=== PATIENT | male | born 1975 | race Caucasian/White ===

== ENCOUNTER 2020-04-28 21:21 | Inpatient (IN) | payer OTHER ==
[2020-04-28] MEDS ORDERED: ALBUTEROL HFA INHALER INHALATION STA (21:30)
--- NOTE | 2020-04-28 22:03 | XR ---
EXAMINATION TYPE: XR chest 1V portable DATE OF EXAM: 04/28/2020 COMPARISON: 08/05/2014 HISTORY: Chest congestion TECHNIQUE: Single view FINDINGS: Heart is enlarged. There is some diffuse pulmonary edema. There are no hilar masses. Medias tinum is normal. There is slight blunting of the costophrenic angles. IMPRESSION: There is new pulmonary edema and cardiomegaly compared to old exam that could be acute he art failure. RDS is possible. Small pleural effusions probably present.
[2020-04-28 22:07] LABS: Basophils # (A) 0.1 k/uL (0-0.2); Basophils % (A) 1 %; Eosinophils % (A) 1 %; HCT 47.4 % (39.0-53.0); HGB 16.2 gm/dL (13.0-17.5); Lymphocytes # (A) 1.1 k/uL (1.0-4.8); Lymphocytes % (A) 24 %; MCH 31.3 pg (25.0-35.0); MCHC 34.2 g/dL (31.0-37.0); MCV 91.4 fL (80.0-100.0); Mean Platelet Volume 7.1; Monocytes # (A) 0.2 k/uL (0-1.0); Monocytes % (A) 6 %; Neutrophils % (A) 67 %; Platelet Count 249 k/uL (150-450); RBC 5.19 m/uL (4.30-5.90); RDW 12.1 % (11.5-15.5); WBC 4.4 k/uL (3.8-10.6)
[2020-04-28] MEDS ORDERED: DEXAMETHASONE SOD PHOSPHATE 10 MG/ML 1 ML VIAL IV STA (22:14)
[2020-04-28] MEDS ORDERED: IBUPROFEN 800 MG TAB PO STA (22:24)
[2020-04-28 22:27] LABS: INR 0.9 (<1.2); Partial Thromboplastin Time 22.4 sec (22.0-30.0); Prothrombin Time 9.9 sec (9.0-12.0)
[2020-04-28 22:32] LABS: ALT 108 U/L (4-49); African American GFR (CKD) >90 (>60 ml/min/1.73 sqM); Albumin 4.3 g/dL (3.5-5.0); Anion Gap 11 mmol/L; Blood Urea Nitrogen 14 mg/dL (9-20); C Reactive Protein 27.2 mg/L (<10.0); Calcium 8.7 mg/dL (8.4-10.2); Carbon Dioxide 22 mmol/L (22-30); Chloride 102 mmol/L (98-107); Glucose 105 mg/dL (74-99); LDH 1270 U/L (313-618); Non-African American GFR(CKD) >90 (>60 ml/min/1.73 sqM); Sodium 135 mmol/L (137-145); Total Bilirubin 0.8 mg/dL (0.2-1.3); Total Protein 8.1 g/dL (6.3-8.2)
[2020-04-28 22:33] LABS: D-Dimer 0.71 mg/L FEU (<0.60)
[2020-04-28 22:38] LABS: AST 127 U/L (17-59); Alkaline Phosphatase 108 U/L (38-126); Potassium 4.4 mmol/L (3.5-5.1)
--- NOTE | 2020-04-28 22:47 | ED ---
SOB HPI - General Chief Complaint: Shortness of Breath Stated Complaint: SOB/COVID+ Time Seen by Provider: 04/28/20 21:30 Source: patient Mode of arrival: ambulatory Limitations: no limitations - History of Present Illness Initial Comments: 45-year-old male presents to the emergency department with a chief complaint of coronavirus. Patient states he was diagnosed with Covid 4 days ago. States initially he was feeling well, however he developed increased shortness of breath with exertion. States that he becomes winded when going between rooms. Denies any chest pain but does report generalized body aches and fatigue. He does report fevers and chills at home. States he took Tylenol about 30 minutes prior to arrival. Denies any nausea vomiting or diarrhea. He denies lightheadedness, dizziness, diaphoretic episodes, blurry vision, one-sided weakness or paresthesias.denies history of asthma, COPD, smoking, hypertension, hyperlipidemia, CAD or diabetes. - Related Data Home Medications Medication Instructions Recorded Confirmed Acetaminophen [Tylenol] 975 mg PO Q6H PRN 04/28/20 04/28/20 Levothyroxine Sodium [Synthroid] 75 mcg PO DAILY 04/28/20 04/28/20 Naproxen [Naprosyn] 500 mg PO BID PRN 04/28/20 04/28/20 Tadalafil [Cialis] 20 mg PO DAILY PRN 04/28/20 04/28/20 hydroCHLOROthiazide [Hydrodiuril] 25 mg PO DAILY 04/28/20 04/28/20 Allergies Allergy/AdvReac Type Severity Reaction Status Date / Time No Known Allergies Allergy Verified 04/28/20 22:40 Review of Systems ROS Statement: Those systems with pertinent positive or pertinent negative responses have been documented in the HPI. ROS Other: All systems not noted in ROS Statement are negative. Past Medical History Additional Past Medical History / Comment(s): covid History of Any Multi-Drug Resistant Organisms: None Reported Past Surgical History: No Surgical Hx Reported Past Psychological History: No Psychological Hx Reported Smoking Status: Never smoker Past Alcohol Use History: Occasional Past Drug Use History: None Reported General Exam Limitations: no limitations General appearance: alert, in no apparent distress Head exam: Present: atraumatic, normocephalic, normal inspection Eye exam: Present: normal appearance, PERRL, EOMI Pupils: Present: normal accommodation ENT exam: Present: normal exam, normal oropharynx, mucous membranes moist, TM's normal bilaterally, normal external ear exam Neck exam: Present: normal inspection, full ROM. Absent: tenderness, meningismus Respiratory exam: Present: rales (mild crackles in the lower lung bases bilaterally.). Absent: respiratory distress, chest wall tenderness, accessory muscle use Cardiovascular Exam: Present: regular rate, normal rhythm, normal heart sounds GI/Abdominal exam: Present: soft. Absent: distended, tenderness, rebound Extremities exam: Present: normal inspection, full ROM, normal capillary refill. Absent: tenderness Back exam: Present: normal inspection, full ROM. Absent: tenderness Neurological exam: Present: alert, oriented X3 Psychiatric exam: Present: normal affect, normal mood Skin exam: Present: warm, dry, intact, normal color Course Vital Signs 04/28/20 04/28/20 04/28/20 21:24 22:02 22:29 Temperature 100.0 F H 99.0 F Pulse Rate 99 90 Respiratory 20 20 18 Rate Blood Pressure 117/81 O2 Sat by Pulse 91 L 94 L Oximetry Medical Decision Making - Medical Decision Making 5-year-old male presents to the emergency department with a chief complaint shortness of breath. Patient is going positive for 5 days. On initial evalu ation, patient is not in significant respiratory distress. However, there is bilateral crackles noted in the lower lung lira. Patient was initially febrile and given antipyretics. CBC unremarkable. CMP reveals mild transaminitis. Coags within normal limits. Elevated d-dimer is 0.71. Elevated LDH, CRP. Pro-Osei pending. Patient is 95% on 2 L of oxygen. Patient was also given 6 mg of IV Decadron. Negative initial troponin with BNP of 27. EKG showing sinus rhythm. CT angios the chest obtained reveals no signs of pulmonary embolism but there is bilateral extensive pulmonary infiltrates. Worse on the left lung base. Patient is 93% on room air and 92% when ambulating. I spoke with RUBENS Saavedra for Dr. Stinson. They will admit for further medical management. Case discussed with ADmitting is Dr Stinson Pulmonary on consult - Lab Data Result diagrams: 04/28/20 21:50 04/28/20 21:50 Lab Results 04/28/20 04/28/20 04/28/20 Range/Units 21:50 21:50 21:50 WBC 4.4 (3.8-10.6) k/uL RBC 5.19 (4.30-5.90) m/uL Hgb 16.2 (13.0-17.5) gm/dL Hct 47.4 (39.0-53.0) % MCV 91.4 (80.0-100.0) fL MCH 31.3 (25.0-35.0) pg MCHC 34.2 (31.0-37.0) g/dL RDW 12.1 (11.5-15.5) % Plt Count 249 (150-450) k/uL MPV 7.1 Neutrophils % 67 % Lymphocytes % 24 % Monocytes % 6 % Eosinophils % 1 % Basophils % 1 % Neutrophils # 3.0 (1.3-7.7) k/uL Lymphocytes # 1.1 (1.0-4.8) k/uL Monocytes # 0.2 (0-1.0) k/uL Eosinophils # 0.0 (0-0.7) k/uL Basophils # 0.1 (0-0.2) k/uL PT 9.9 (9.0-12.0) sec INR 0.9 (<1.2) APTT 22.4 (22.0-30.0) sec D-Dimer 0.71 H (<0.60) mg/L FEU Sodium 135 L (137-145) mmol/L Potassium 4.4 (3.5-5.1) mmol/L Chloride 102 (98-107) mmol/L Carbon Dioxide 22 (22-30) mmol/L Anion Gap 11 mmol/L BUN 14 (9-20) mg/dL Creatinine 0.82 (0.66-1.25) mg/dL Est GFR (CKD-EPI)AfAm >90 (>60 ml/min/1.73 sqM) Est GFR (CKD-EPI)NonAf >90 (>60 ml/min/1.73 sqM) Glucose 105 H (74-99) mg/dL Plasma Lactic Acid Adrian (0.7-2.0) mmol/L Calcium 8.7 (8.4-10.2) mg/dL Magnesium 2.0 (1.6-2.3) mg/dL Total Bilirubin 0.8 (0.2-1.3) mg/dL AST 127 H (17-59) U/L ALT 108 H (4-49) U/L Alkaline Phosphatase 108 (38-126) U/L Lactate Dehydrogenase 1270 H (313-618) U/L Troponin I (0.000-0.034) ng/mL C-Reactive Protein 27.2 H (<10.0) mg/L NT-Pro-B Natriuret Pep pg/mL Total Protein 8.1 (6.3-8.2) g/dL Albumin 4.3 (3.5-5.0) g/dL 04/28/20 04/28/20 04/28/20 Range/Units 21:50 21:50 21:50 WBC (3.8-10.6) k/uL RBC (4.30-5.90) m/uL Hgb (13.0-17.5) gm/dL Hct (39.0-53.0) % MCV (80.0-100.0) fL MCH (25.0-35.0) pg MCHC (31.0-37.0) g/dL RDW (11.5-15.5) % Plt Count (150-450) k/uL MPV Neutrophils % % Lymphocytes % % Monocytes % % Eosinophils % % Basophils % % Neutrophils # (1.3-7.7) k/uL Lymphocytes # (1.0-4.8) k/uL Monocytes # (0-1.0) k/uL Eosinophils # (0-0.7) k/uL Basophils # (0-0.2) k/uL PT (9.0-12.0) sec INR (<1.2) APTT (22.0-30.0) sec D-Dimer (<0.60) mg/L FEU Sodium (137-145) mmol/L Potassium (3.5-5.1) mmol/L Chloride (98-107) mmol/L Carbon Dioxide (22-30) mmol/L Anion Gap mmol/L BUN (9-20) mg/dL Creatinine (0.66-1.25) mg/dL Est GFR (CKD-EPI)AfAm (>60 ml/min/1.73 sqM) Est GFR (CKD-EPI)NonAf (>60 ml/min/1.73 sqM) Glucose (74-99) mg/dL Plasma Lactic Acid Adrian 0.9 (0.7-2.0) mmol/L Calcium (8.4-10.2) mg/dL Magnesium (1.6-2.3) mg/dL Total Bilirubin (0.2-1.3) mg/dL AST (17-59) U/L ALT (4-49) U/L Alkaline Phosphatase (38-126) U/L Lactate Dehydrogenase (313-618) U/L Troponin I <0.012 (0.000-0.034) ng/mL C-Reactive Protein (<10.0) mg/L NT-Pro-B Natriuret Pep 29 pg/mL Total Protein (6.3-8.2) g/dL Albumin (3.5-5.0) g/dL - EKG Data EKG Comments: sinus rhythm and no ST or T-wave changes. Ventricular rate 90, SD 160, QRS 90, QTc 457. Disposition Clinical Impression: Pneumonia due to COVID-19 virus Disposition: ADMITTED IP TO THIS HOSP Condition: Good Is patient prescribed a controlled substance at d/c from ED?: No Referrals: Jose G Salvador MD [Primary Care Provider] - 1-2 days Time of Disposition: 00:15
--- NOTE | 2020-04-28 23:49 | CT ---
EXAMINATION TYPE: CT chest angio for PE DATE OF EXAM: 04/28/2020 COMPARISON: None HISTORY: pe CT DLP: 699.5 mGycm Automated exposure control for dose reduction was used. CONTRAST: Performed with IV Contrast, patient injected with 100 mL of Isovue 370. Images obtained from the thoracic inlet to the diaphragm with IV contrast and 3-D post processed imag es. There is patchy airspace infiltrate in both lungs. This is seen in the upper and lower lobes bilatera lly. Infiltrate is more severe in the left lower lobe. Heart is slightly enlarged. There is no perica rdial effusion. There is no mediastinal adenopathy. There are no hilar masses. Thoracic aorta is intact. There is no aneurysm or dissection. There is normal contrast opacification of the pulmonary arteries. There are no filling defects. The bony thorax is intact. Thoracic vertebra show normal spacing and alignment. There is no compressi on fracture. Sternum is intact. Upper abdominal soft tissues are intact. IMPRESSION: No evidence of pulmonary embolism. Bilateral extensive pulmonary airspace infiltrates consistent with inflammatory disease. Mild cardiomegaly.
[2020-04-29] MEDS ORDERED: LORazepam 2 MG/ML INJ IV PRN (00:16)
[2020-04-29] MEDS ORDERED: IBUPROFEN 400 MG TAB PO PRN (00:16)
[2020-04-29] MEDS ORDERED: oxyCODONE-APAP 5-325MG 1 EACH TAB PO PRN (00:16)
[2020-04-29] MEDS ORDERED: NALOXONE 0.4 MG/ML 1 ML VIAL IV PRN (00:16)
[2020-04-29] MEDS ORDERED: HYDROcodone/APAP 5-325MG 1 EACH TAB PO PRN (00:16)
[2020-04-29] MEDS ORDERED: traMADol 50 MG TAB PO PRN (00:16)
[2020-04-29] MEDS ORDERED: MORPHINE SULFATE 4 MG/ML SYRINGE IV PRN (00:16)
[2020-04-29] MEDS ORDERED: ONDANSETRON 4 MG/2 ML VIAL IVP PRN (00:16)
[2020-04-29] MEDS: SODIUM CHLORIDE 0.9% 1,000 ML IV SCH ×2 (01:04→18:36)
[2020-04-29 04:12] LABS: Ferritin 1119.4 ng/mL (22.0-322.0)
[2020-04-29] MEDS ORDERED: REMDESIVIR 200 MG in SODIUM CHLORIDE 0.9% 250 ML IVPB ONE (10:49)
[2020-04-29] MEDS: ASCORBIC ACID 500 MG TAB PO SCH (11:26)
[2020-04-29] MEDS: ZINC SULFATE 220 MG CAP PO SCH (11:26)
[2020-04-29] MEDS: CHOLECALCIFEROL 25 MCG (1000 IU) TABLET PO SCH (11:26)
[2020-04-29] MEDS: COLCHICINE 0.6 MG EACH PO SCH ×2 (11:26→20:00)
[2020-04-29] MEDS: ENOXAPARIN 40 MG/0.4 ML SYRINGE SQ SCH (11:26)
--- NOTE | 2020-04-29 11:55 | P.CNPUL ---
History of Present Illness Consult date: 04/29/20 Requesting physician: Forrest Stinson Reason for consult: dyspnea, abnormal CXR/CT Chief complaint: Shortness of breath History of present illness: This is a very pleasant 45-year-old gentleman who follows with Dr. Salvador as his primary care provider. He has a history of hypertension, hypothyroidism, erectile dysfunction. On April 21 he developed symptoms of fever, chills, night sweats, headache. He tested positive for CoVID 19 on April 24. His shortness of breath increased and he presented here to the emergency room yesterday. Chest x-ray revealed evidence of bilateral infiltrates. CT angiogram ruled out pulmonary embolism. There is bilateral extensive pulmonaryinfiltrates consistent with inflammatory disease secondary to CoVID 19 pneumonitis. White count 4.4. Hemoglobin 16.2. D-dimer 0.71. Sodium 135. Potassium 4.4. Creatinine 0.82. Ferritin 1119. LDH 1220. C-reactive protein 27.2. Pro-calcitonin 0.07. He is seen today in follow-up on the regular medical floor. He is currently sitting up in bed. Awake and alert in no acute distress. He did have a T-max of 100.0. Currently afebrile. Maintaining O2 saturation in the low 90s on 3 L/m per nasal cannula. He was initiated on dexamethasone. Review of Systems REVIEW OF SYSTEMS: CONSTITUTIONAL: Fever, chills, night sweats. Denies any recent significant weight loss or weight gain. EYES: Denies change in vision. EARS, NOSE, MOUTH, THROAT: Positive for headaches, denies sore throat. CARDIOVASCULAR: Denies chest pain, palpitations or syncopal episodes. RESPIRATORY: Positive for shortness of breath, cough, congestion no hemoptysis. GASTROINTESTINAL: Denies change in appetite, denies abdominal pain GENITOURINARY: Denies hematuria, denies infections. MUSKULOSKELETAL: Denies pain, denies swelling. INTEGUMENTARY: Denies rash, denies eczema. NEUROLOGICAL: Denies recent memory loss, no recent seizure activity. PSYCHIATRIC: Denies anxiety, denies depression. HEMATOLOGIC/LYMPHATIC: Denies anemia, denies enlarged lymph nodes. Past Medical History Additional Past Medical History / Comment(s): covid History of Any Multi-Drug Resistant Organisms: None Reported Past Surgical History: No Surgical Hx Reported Past Anesthesia/Blood Transfusion Reactions: No Reported Reaction Past Psychological History: No Psychological Hx Reported Smoking Status: Never smoker Past Alcohol Use History: Occasional Past Drug Use History: None Reported Medications and Allergies Home Medications Medication Instructions Recorded Confirmed Type Acetaminophen [Tylenol] 975 mg PO Q6H PRN 04/28/20 04/28/20 History Levothyroxine Sodium [Synthroid] 75 mcg PO DAILY 04/28/20 04/28/20 History Naproxen [Naprosyn] 500 mg PO BID PRN 04/28/20 04/28/20 History Tadalafil [Cialis] 20 mg PO DAILY PRN 04/28/20 04/28/20 History hydroCHLOROthiazide [Hydrodiuril] 25 mg PO DAILY 04/28/20 04/28/20 History Allergies Allergy/AdvReac Type Severity Reaction Status Date / Time No Known Allergies Allergy Verified 04/28/20 22:40 Physical Exam Vitals: Vital Signs Temp Pulse Pulse Resp BP BP Pulse Ox 04/29/20 10:00 97.7 F 71 20 120/78 92 L 04/29/20 08:00 67 16 04/29/20 05:38 97.5 F L 67 16 126/82 92 L 04/29/20 00:42 98.6 F 76 15 119/79 93 L 04/28/20 22:29 99.0 F 90 18 94 L 04/28/20 22:02 20 04/28/20 21:24 100.0 F H 99 20 117/81 91 L Intake and Output 04/28/20 04/29/20 04/29/20 22:59 06:59 14:59 Intake Total 100 Balance 100 Intake: Oral 100 Other: Voiding Method Toilet Toilet # Voids 2 Weight 113.398 kg 113.398 kg GENERAL EXAM: Alert, very pleasant 45-year-old gentleman, on 3 L nasal cannula comfortable in no apparent distress. HEAD: Normocephalic. EYES: Normal reaction of pupils, equal size. NOSE: Clear with pink turbinates. THROAT: No erythema or exudates. NECK: No masses, no JVD. CHEST: No chest wall deformity. LUNGS: Equal air entry with bilateral scattered rhonchi. CVS: S1 and S2 normal with no audible murmur, regular rhythm. ABDOMEN: No hepatosplenomegaly, normal bowel sounds, no guarding or rigidity. SPINE: No scoliosis or deformity SKIN: No rashes CENTRAL NERVOUS SYSTEM: No focal deficits, tone is normal in all 4 extremities. EXTREMITIES: There is no peripheral edema. No clubbing, no cyanosis. Peripheral pulses are intact. Results - Laboratory Findings CBC and BMP: 04/28/20 21:50 04/28/20 21:50 PT/INR, D-dimer PT 9.9 sec (9.0-12.0) 04/28/20 21:50 INR 0.9 (<1.2) 04/28/20 21:50 D-Dimer 0.71 mg/L FEU (<0.60) H 04/28/20 21:50 Abnormal lab findings: Abnormal Labs 04/28/20 04/28/20 21:50 21:50 D-Dimer 0.71 H Sodium 135 L Glucose 105 H Ferritin 1119.4 H AST 127 H ALT 108 H Lactate Dehydrogenase 1270 H C-Reactive Protein 27.2 H - Diagnostic Findings Chest x-ray: image reviewed CT scan - chest: image reviewed Assessment and Plan Assessment: 1 Acute hypoxic respiratory failure secondary to acute CoVID 19 pneumonitis, outside the window for Remdesivir 2 Elevated inflammatory markers secondary to above 3 Febrile illness secondary to above, pro-calcitonin 0.07. 4 Hypertension 5 Hypothyroidism 6 Erectile dysfunction Plan: The patient was seen and evaluated by Dr. Vanessa Chest x-ray, CAT scans and labs reviewed Outside the window for Remdesivir Add colchicine, dexamethasone, Lovenox Add vitamin supplements Repeat chest x-ray, inflammatory markers, d-dimer in a.m. Titrate the FiO2 as tolerated We will continue to follow and make further recommendations based on his clinical status I, the cosigning physician, performed a history & physical examination of the patient. Lungs sounds bilateral scattered rhonchi. Maintaining good O2 saturati ons in the 90s on 3 L/m per nasal cannula. I discussed the assessment and plan of care with my nurse practitioner, Odalis Chavez. I attest to the above consultation as dictated by her. Time with Patient: Greater than 30
[2020-04-29 12:44] VITALS: BMI 33.0
--- NOTE | 2020-04-29 13:40 | P.HPIM ---
History of Present Illness Present wasn't a 43-year-old male came in with compensative fever chills night sweats and headaches. Patient was diagnosed with coding 99 for 15 although his symptoms are going on for about 10 days. Chest x-ray bilateral infiltrates. D-dimer is 0.71. Patient last fever was last night. Currently afebrile patient 3 L of oxygen tremor is minimally elevated. Patient was started on Decadron, colchicine was evaluated by pulmonary. Review of Systems REVIEW OF SYSTEMS: CONSTITUTIONAL: As mentioned in HPI HEENT: No recent visual problems or hearing problems. Denied any sore throat. CARDIOVASCULAR: No chest pain, orthopnea, PND, no palpitations, no syncope. PULMONARY: no hemoptysis. GASTROINTESTINAL: No diarrhea, no nausea, no vomiting, no abdominal pain. NEUROLOGICAL: No headaches, no weakness, no numbness. HEMATOLOGICAL: Denies any bleeding or petechiae. GENITOURINARY: Denies any burning micturition, frequency, or urgency. MUSCULOSKELETAL/RHEUMATOLOGICAL: Denies any joint pain, swelling, or any muscle pain. ENDOCRINE: Denies any polyuria or polydipsia. The rest of the 14-point review of systems is negative. Past Medical History Additional Past Medical History / Comment(s): covid History of Any Multi-Drug Resistant Organisms: None Reported Past Surgical History: No Surgical Hx Reported Past Anesthesia/Blood Transfusion Reactions: No Reported Reaction Past Psychological History: No Psychological Hx Reported Smoking Status: Never smoker Past Alcohol Use History: Occasional Past Drug Use History: None Reported Medications and Allergies Home Medications Medication Instructions Recorded Confirmed Type Acetaminophen [Tylenol] 975 mg PO Q6H PRN 04/28/20 04/28/20 History Levothyroxine Sodium [Synthroid] 75 mcg PO DAILY 04/28/20 04/28/20 History Naproxen [Naprosyn] 500 mg PO BID PRN 04/28/20 04/28/20 History Tadalafil [Cialis] 20 mg PO DAILY PRN 04/28/20 04/28/20 History hydroCHLOROthiazide [Hydrodiuril] 25 mg PO DAILY 04/28/20 04/28/20 History Allergies Allergy/AdvReac Type Severity Reaction Status Date / Time No Known Allergies Allergy Verified 04/28/20 22:40 Physical Exam Vitals: Vital Signs Temp Pulse Pulse Resp BP BP Pulse Ox 04/29/20 10:00 97.7 F 71 20 120/78 92 L 04/29/20 08:00 67 16 04/29/20 05:38 97.5 F L 67 16 126/82 92 L 04/29/20 00:42 98.6 F 76 15 119/79 93 L 04/28/20 22:29 99.0 F 90 18 94 L 04/28/20 22:02 20 04/28/20 21:24 100.0 F H 99 20 117/81 91 L Intake and Output 04/28/20 04/29/20 04/29/20 22:59 06:59 14:59 Intake Total 100 Balance 100 Intake: Oral 100 Other: Voiding Method Toilet Toilet # Voids 2 Weight 113.398 kg 113.398 kg 113.398 kg PHYSICAL EXAMINATION: GENERAL: The patient is alert and oriented x3, not in any acute distress. Well developed, well nourished. HEENT: Pupils are round and equally reacting to light. EOMI. No scleral icterus. No conjunctival pallor. Normocephalic, atraumatic. No pharyngeal erythema. No th yromegaly. CARDIOVASCULAR: S1 and S2 present. No murmurs, rubs, or gallops. PULMONARY: Chest is clear to auscultation, no wheezing or crackles. ABDOMEN: Soft, nontender, nondistended, normoactive bowel sounds. No palpable organomegaly. MUSCULOSKELETAL: No joint swelling or deformity. EXTREMITIES: No cyanosis, clubbing, or pedal edema. NEUROLOGICAL: Gross neurological examination did not reveal any focal deficits. SKIN: No rashes. Note: Because of COVID 19 isolation, some of the history and physical exam findings are indirect and obtained from nursing staff, and other physician examinations to avoid unnecessary contact with the patient. Results CBC & Chem 7: 04/28/20 21:50 04/28/20 21:50 Labs: Abnormal Lab Results - Last 24 Hours (Table) 04/28/20 04/28/20 Range/Units 21:50 21:50 D-Dimer 0.71 H (<0.60) mg/L FEU Sodium 135 L (137-145) mmol/L Glucose 105 H (74-99) mg/dL Ferritin 1119.4 H (22.0-322.0) ng/mL AST 127 H (17-59) U/L ALT 108 H (4-49) U/L Lactate Dehydrogenase 1270 H (313-618) U/L C-Reactive Protein 27.2 H (<10.0) mg/L Thrombosis Risk Factor Assmnt - Choose All That Apply Each Factor Represents 1 point: Age 41-60 years Thrombosis Risk Factor Assessment Total Risk Factor Score: 1 Thrombosis Risk Factor Assessment Level: Low Risk Assessment and Plan Plan: Acute hypoxic respiratory failure secondary to covid 19, patient is presently on Decadron, zinc, colchicine continue to monitor inflammatory markers -Hypothyroidism -Hypertension patient to doesn't appear to have essential hypertension patient doesn't take the hydrochlorothiazide as documented here this medication will be held. -DVT prophylaxis with Lovenox for GI prophylaxis with Pepcid
[2020-04-29] MEDS: ACETAMINOPHEN TAB 325 MG TAB PO PRN (19:14)
[2020-04-29] MEDS: FAMOTIDINE 20 MG TAB PO SCH (20:00)
[2020-04-30] MEDS: SODIUM CHLORIDE 0.9% 1,000 ML IV SCH ×2 (02:10→18:40)
[2020-04-30] MEDS: LEVOTHYROXINE 75 MCG TAB PO SCH (05:40)
--- NOTE | 2020-04-30 07:20 | XR ---
EXAMINATION TYPE: XR chest 1V portable DATE OF EXAM: 04/30/2020 COMPARISON: 04/28/2020 HISTORY: Follow-up pneumonia TECHNIQUE: Single frontal view of the chest is obtained. FINDINGS: Patchy perihilar infiltrates persist with interval improvement suggested. The cardiac silhouette size is within normal limits. The osseous structures are intact. IMPRESSION: 1. Patchy perihilar infiltrates persist with interval improvement suggested.
[2020-04-30] MEDS: ACETAMINOPHEN TAB 325 MG TAB PO PRN ×3 (07:43→23:42)
[2020-04-30] MEDS: CHOLECALCIFEROL 25 MCG (1000 IU) TABLET PO SCH (07:43)
[2020-04-30] MEDS: ENOXAPARIN 40 MG/0.4 ML SYRINGE SQ SCH (07:43)
[2020-04-30] MEDS: FAMOTIDINE 20 MG TAB PO SCH ×2 (07:43→20:38)
[2020-04-30] MEDS: ZINC SULFATE 220 MG CAP PO SCH (07:43)
[2020-04-30] MEDS: COLCHICINE 0.6 MG EACH PO SCH ×2 (07:44→20:38)
[2020-04-30] MEDS: ASCORBIC ACID 500 MG TAB PO SCH (07:44)
[2020-04-30] MEDS: ALBUTEROL HFA INHALER INHALATION SCH ×5 (08:50→23:39)
--- NOTE | 2020-04-30 09:42 | P.PN ---
Subjective 43-year-old male came in with compensative fever chills night sweats and headaches. Patient was diagnosed with Covid 19 are going on for about 10 days. Chest x-ray bilateral infiltrates. D-dimer is 0.71. Patient last fever was last night. Currently afebrile patient 3 L of oxygen tremor is minimally elevated. Patient was started on Decadron, colchicine was evaluated by pulmonary. 04/30/2020 Patient's d-dimer is down. Patient is feeling bit worse compared to yesterday patient is presently on 3 L of oxygen. Constitutional: Denied any fatigue denied any fever. Cardio vascular: denied any chest pain, palpitations Gastrointestinal denied any nausea vomiting Pulmonary: Patient hasn't been shortness of breath today, given compared to Neurologic denied any new focal deficits All inpatient medications were reviewed and appropriate changes in these medications as dictated in the interval history and assessment and plan. Objective - Vital Signs Vital signs: Vital Signs Temp 98.5 F 04/30/20 05:22 Pulse 79 04/30/20 07:45 Resp 15 04/30/20 07:45 BP 110/64 04/30/20 05:22 Pulse Ox 95 04/30/20 05:22 Intake & Output 04/29/20 04/30/20 04/30/20 18:59 06:59 18:59 Intake Total 900 200 Balance 900 200 Weight 113.398 kg Intake: Intake, IV Titration 900 Amount Sodium Chloride 0.9% 1, 900 000 ml @ 75 mls/hr IV . [id number] [facility] Rx#:[id number] Oral 200 Other: Voiding Method Toilet Toilet Toilet # Voids 2 - Exam PHYSICAL EXAMINATION: GENERAL: The patient is alert and oriented x3, not in any acute distress. Well developed, well nourished. HEENT: Pupils are round and equally reacting to light. EOMI. No scleral icterus. No conjunctival pallor. Normocephalic, atraumatic. No pharyngeal erythema. No thyromegaly. CARDIOVASCULAR: S1 and S2 present. No murmurs, rubs, or gallops. PULMONARY: Chest is clear to auscultation, no wheezing or crackles. ABDOMEN: Soft, nontender, nondistended, normoactive bowel sounds. No palpable or ganomegaly. MUSCULOSKELETAL: No joint swelling or deformity. EXTREMITIES: No cyanosis, clubbing, or pedal edema. NEUROLOGICAL: Gross neurological examination did not reveal any focal deficits. SKIN: No rashes. Note: Because of COVID 19 isolation, some of the history and physical exam findings are indirect and obtained from nursing staff, and other physician examinations to avoid unnecessary contact with the patient. - Labs CBC & Chem 7: 04/28/20 21:50 02 21:50 Labs: Microbiology - Last 24 Hours (Table) 04/28/20 21:35 Blood Culture - Preliminary Blood No Growth after 24 hours 04/28/20 21:50 Blood Culture - Preliminary Blood No Growth after 24 hours Assessment and Plan Plan: Acute hypoxic respiratory failure secondary to covid 19, patient is presently on Decadron, zinc, colchicine continue to monitor inflammatory markers patient is bit worse today which is not unexpected -Hypothyroidism -Hypertension patient to doesn't appear to have essential hypertension patient doesn't take the hydrochlorothiazide as documented here this medication will be held. Patient probably will not need any antidepressant medications upon discharge -DVT prophylaxis with Lovenox for GI prophylaxis with Pepcid
[2020-04-30] MEDS ORDERED: REMDESIVIR 100 MG in SODIUM CHLORIDE 0.9% 250 ML IVPB SCH (10:49)
[2020-04-30 11:24] LABS: C Reactive Protein 2.9 mg/dL (0.0-0.8)
--- NOTE | 2020-04-30 12:31 | P.PN ---
Subjective Progress Note Date: 04/30/20 This is a very pleasant 45-year-old gentleman who follows with Dr. Salvador as his primary care provider. He has a history of hypertension, hypothyroidism, erectile dysfunction. On April 21 he developed symptoms of fever, chills, night sweats, headache. He tested positive for CoVID 19 on April 24. His shortness of breath increased and he presented here to the emergency room yesterday. Chest x-ray revealed evidence of bilateral infiltrates. CT angiogram ruled out pulmonary embolism. There is bilateral extensive pulmonaryinfiltrates consistent with inflammatory disease secondary to CoVID 19 pneumonitis. White count 4.4. Hemoglobin 16.2. D-dimer 0.71. Sodium 135. Potassium 4.4. Creatinine 0.82. Ferritin 1119. LDH 1220. C-reactive protein 27.2. Pro-calcitonin 0.07. He is seen today in follow-up on the regular medical floor. He is currently sitting up in bed. Awake and alert in no acute distress. He did have a T-max of 100.0. Currently afebrile. Maintaining O2 saturation in the low 90s on 3 L/m per nasal cannula. He was initiated on dexamethasone. On 04/30/2020 and seeing the patient for a follow-up. The patient is still having shortness of breath and his cough and frequently while having a conversation with me. He is having some feverishness and sweating at nighttime. No nausea. No vomiting. No diarrhea. No abdominal pain.On today's blood work, his LDH is down to 376 and his CRP is down to 2.9 and the patient remains on examination Decadron colchicine in addition to various vitamin supplements. His d-dimer currently is at 0.59 and it patient is taking Lovenox for DVT prophylaxis. He remains on oxygen at 3 L per minute nasal cannula and his chest x-ray showing patchy perihilar pulmonary infiltrates with some interval i mprovement compared to the chest x-ray was done on 04/28/2020. Objective - Vital Signs Vital signs: Vital Signs Temp 98.5 F 04/30/20 09:51 Pulse 92 04/30/20 09:51 Resp 20 04/30/20 09:51 BP 123/63 04/30/20 09:51 Pulse Ox 93 L 04/30/20 09:51 Intake & Output 04/29/20 04/30/20 04/30/20 18:59 06:59 18:59 Intake Total 900 200 Balance 900 200 Weight 113.398 kg Intake: Intake, IV Titration 900 Amount Sodium Chloride 0.9% 1, 900 000 ml @ 75 mls/hr IV . [id number] [facility] Rx#:[id number] Oral 200 Other: Voiding Method Toilet Toilet Toilet # Voids 2 - Exam GENERAL EXAM: Alert, very pleasant 45-year-old gentleman, on 3 L nasal cannula comfortable in no apparent distress. HEAD: Normocephalic. EYES: Normal reaction of pupils, equal size. NOSE: Clear with pink turbinates. THROAT: No erythema or exudates. NECK: No masses, no JVD. CHEST: No chest wall deformity. LUNGS: Equal air entry with bilateral scattered rhonchi. CVS: S1 and S2 normal with no audible murmur, regular rhythm. ABDOMEN: No hepatosplenomegaly, normal bowel sounds, no guarding or rigidity. SPINE: No scoliosis or deformity SKIN: No rashes CENTRAL NERVOUS SYSTEM: No focal deficits, tone is normal in all 4 extremities. EXTREMITIES: There is no peripheral edema. No clubbing, no cyanosis. Peripheral pulses are intact. - Labs CBC & Chem 7: 04/28/20 21:50 04/28/20 21:50 Labs: Abnormal Lab Results - Last 24 Hours (Table) 04/30/20 Range/Units 05:31 Lactate Dehydrogenase 376 H (120-246) U/L C-Reactive Protein 2.9 H (0.0-0.8) mg/dL Microbiology - Last 24 Hours (Table) 04/28/20 21:35 Blood Culture - Preliminary Blood No Growth after 24 hours 04/28/20 21:50 Blood Culture - Preliminary Blood No Growth after 24 hours Assessment and Plan Plan: 1 Acute hypoxic respiratory failure secondary to acute CoVID 19 pneumonitis, outside the window for Remdesivir , currently on Decadron and the patient's chest x-ray showing some limited improvement in the pulmonary infiltrates and the patient's LDH and CRP are declining. The patient continues to have cough and shortness of breath. Oxygenation is stable on 4 L about 2 by nasal cannula. 2 Elevated inflammatory markers secondary to above 3 Febrile illness secondary to above, pro-calcitonin 0.07. 4 Hypertension 5 Hypothyroidism 6 Erectile dysfunction Plan: Chest x-ray, CAT scans and labs reviewed Outside the window for Remdesivir or convalescent plasma Continue colchicine, dexamethasone, Lovenox vitamin supplements Repeat chest x-ray from today shows some limited improvement in the bilateral p ulmonary infiltrates Titrate the FiO2 as tolerated We will continue to follow and make further recommendations based on his clinical status
[2020-04-30] MEDS: DEXAMETHASONE SOD PHOSPHATE 10 MG/ML 1 ML VIAL IV SCH (17:01)
[2020-05-01] MEDS: SODIUM CHLORIDE 0.9% 1,000 ML IV SCH ×2 (04:08→16:27)
[2020-05-01] MEDS: LEVOTHYROXINE 75 MCG TAB PO SCH (05:38)
[2020-05-01] MEDS: ZINC SULFATE 220 MG CAP PO SCH (08:07)
[2020-05-01] MEDS: CHOLECALCIFEROL 25 MCG (1000 IU) TABLET PO SCH (08:07)
[2020-05-01] MEDS: FAMOTIDINE 20 MG TAB PO SCH (08:07)
[2020-05-01] MEDS: ASCORBIC ACID 500 MG TAB PO SCH (08:07)
[2020-05-01] MEDS: DEXAMETHASONE SOD PHOSPHATE 10 MG/ML 1 ML VIAL IV SCH (08:07)
[2020-05-01] MEDS: ENOXAPARIN 40 MG/0.4 ML SYRINGE SQ SCH (08:07)
[2020-05-01] MEDS: COLCHICINE 0.6 MG EACH PO SCH (08:08)
[2020-05-01] MEDS: ACETAMINOPHEN TAB 325 MG TAB PO PRN ×2 (08:08→16:33)
[2020-05-01] MEDS: ALBUTEROL HFA INHALER INHALATION SCH ×3 (08:26→15:40)
[2020-05-01] MEDS: guaiFENesin SYRUP 100MG/5ML 200 MG/10 ML CUP PO PRN ×2 (10:31→16:33)
[2020-05-01] MEDS: BENZOCAINE/MENTHOL LOZENG 1 EACH LOZENGE MUCOUS MEM PRN ×2 (10:31→16:33)
[2020-05-01 10:36] VITALS: BP 154/75; PULSE 98; RESP 18; TEMP 99
--- NOTE | 2020-05-01 11:38 | P.PN ---
Subjective Progress Note Date: 05/01/20 Principal diagnosis: CHF, respiratory failure. 58-year-old gentleman with past medical history consistent for hypertension, hyperlipidemia, obstructive sleep apnea, noncompliant with CPAP, nonobstructive coronary artery disease. He follows in the office with Dr. Dong quintero. Cardiology consultation was requested yesterday for congestive cardiac failure. Patient did have an echocardiogram with Doppler study performed in July 2019 which revealed an ejection fraction of 50-55%. He also underwent a cardiac catheterization in June [address] Dominguez revealing mild to moderate nonobstructive coronary artery disease in the right coronary artery. This patient presented to the hospital because of for the history of shortness of breath with minimal amount for 4 days prior to his hospital admission in addition to chest pain on the right side of the chest radiating to his right side of the abdomen. EKG revealed sinus mechanism without any acute ischemic changes. Chest x-ray was consistent with cardiomyopathy and increased pulmonary vascular marking and pulmonary edema. CT angiogram showed no evidence of any pulmonary embolism. There was a 6 mm nodule in the right upper lobe that has remained unchanged in comparison. The white cell count was 8.6 with a h emoglobin of 14.2 and a platelets of 205 and a d-dimer of 1.18. Creatinine was at 1.04. Troponins were 0.075 and 0.07 respectively 2 in the proBNP level was 4250. The patient was admitted for further management and subsequently got transferred to the intensive care unit as the patient became more short of breath. Initially the patient was a 4L oxygen by nasal cannula. Subsequently, yesterday afternoon the patient became more short of breath and hypoxic in the blood is showed severe respiratory acidosis. He was intubated on less than mechanical ventilator. Note that the blood gases showing significant acute on top of chronic respiratory acidosis with a pH of 7.27 with a pCO2 of 91 and pO2 of 65. Post intubation chest x-ray shows improvement in the volume status and the ET tube is in a good location. The patient was also given and she'll. He was started on Lasix 40 mg IV every 12 hours in addition to aspirin and his routine cardiac medication which includes metoprolol 50 mg daily as 40 mg by mouth daily, Norvasc 10 mg by mouth daily and clonidine 0.2 mg by mouth 3 times a day for blood pressure control. This morning, the patient is was sedated and she is calm and comfortable. Is currently on 40 g of propofol kilogram per minute. His been adequately sedated overnight. He required no pressors. He is a mechanical ventilator on assist control mode at the rate of 16 with tidal volume of 500 and FiO2 of 90% with a PEEP of 8. Morning blood gases showed improvement and acid base status. PH is at 7.45 with a pCO2 of 63 and pO2 of 64. Follow-up chest x-ray was done and showed a right lower lobe consolidation most consistent with an underlying developing pneumonia. The patient is having large amount of respiratory secretions that needs to be cultured. He is on no antibiotics for now. He is on IV Lasix 40 mg every 12 hours. Urine output is in order of 75-80 mL an hour. He is afebrile. He is easily arousable once off sedation. He is also in normal sinus rhythm for now at the rate of 56. Orogastric tube is also in place. No major edema in lower extremities. He is morbidly obese. Echocardiogram showed a normal LV, moderate concentric LVH, ejection fraction 45-50% Progress note dated 05/01/2020. 58-year-old male seen by my partner yesterday. The patient has a history of hypertension, hyperlipidemia, sleep apnea, and coronary artery disease. The patient was admitted to the hospital on April 28, for heart failure, and chest pain. Because of worsening hypoxemic respiratory failure, the patient was intubated and mechanically ventilated on April 29. The patient's currently on the volume assist control mode, rate of 16, tidal volume 500, FiO2 90%, and PEEP of 10 arterial blood gases show a PaO2 of 77 PaCO2 of 59 and pH 7.46. In addition, the patient's on saline at KVO, and propofol 60 mcg/kg/m. PEEP will be increased to 15, and we'll attempt to wean the FiO2. In addition, the patient was started on tube feeds. The patient does have an arterial line. We will ask interventional radiology to place either a PICC line, or midline catheter. White count 7.6, hemoglobin 14.7, hematocrit 45.8, and platelet count 201,000. Sodium is 139, potassium 4, chlorides 93, CO2 38, anion gap 8, BUN 31, and creatinine 0.96. Chest x-ray reveals a right lower lobe infiltrate. Currently, he is reasonably stable. He is on Rocephin and azithromycin, for community-acquired pneumonia. Objective - Vital Signs Vital signs: Vital Signs Temp 99.0 F 05/01/20 10:00 Pulse 98 05/01/20 10:00 Resp 18 05/01/20 10:00 BP 154/75 05/01/20 10:00 Pulse Ox 88 L 05/01/20 10:00 Intake & Output 04/30/20 05/01/20 05/01/20 18:59 06:59 18:59 Intake Total 500 300 Output Total 500 Balance -500 500 300 Intake: Oral 500 300 Output: Urine 500 Other: Voiding Method Toilet Toilet Toilet # Voids 3 4 - Exam Currently sedated, on propofol, with an orally placed endotracheal tube and NG tube. HEENT examination is grossly unremarkable. Mucous membranes are moist. . Neck supple. Full range of motion. No adenopathy thyromegaly or neck vein distention. Cardiovascular examination reveals regular rhythm rate. S1-S2 normal. No S3 or S4. No discernible murmur noted. Lungs reveal diminished bilateral breath sounds, with rhonchi, and a few scattered crackles. There are no wheezes. Breath sounds are equal bilaterally. Abdomen soft bowel sounds are heard. No masses or tenderness. Extremities are intact. Trace edema. No cyanosis or clubbing. Skin is without rash or lesion. Neurologic examination could not be adequately assessed. - Labs CBC & Chem 7: 04/28/20 21:50 04/28/20 21:50 Labs: Abnormal Lab Results - Last 24 Hours (Table) 04/30/20 Range/Units 05:31 Lactate Dehydrogenase 376 H (120-246) U/L C-Reactive Protein 2.9 H (0.0-0.8) mg/dL Microbiology - Last 24 Hours (Table) 04/28/20 21:50 Blood Culture - Preliminary Blood No Growth after 48 hours 04/28/20 21:35 Blood Culture - Preliminary Blood No Growth after 48 hours Assessment and Plan Assessment: Acute hypoxemic and hypercapnic respiratory failure, secondary to CHF exacerbation, and right lower lobe pneumonia, status post intubation and mechanical ventilation on 04/29/2020. Acute non-ST segment elevation myocardial infarction, versus troponin leak secondary to supply demand mismatch. Mild to moderate nonobstructive coronary artery disease, status post cardiac catheterization June 2019. Hypertension. Hyperlipidemia. Obstructive sleep apnea syndrome. Morbid obesity. COPD. Chronic hypercapnic respiratory failure secondary to COPD and possible Pickwickian syndrome. Plan: Plan dated 01/29/2021. The patient's PEEP will be increased to 15, and we'll attempt to titrate down the FiO2. We may go higher on the PEEP depending on his response to the incr ease in PEEP from 10 cm water up to 15 cm water. In addition, the patient will be started on tube feeds. Finally, place either a PICC line or midline, as the patient is a difficult stick and has to peripheral IVs. He really has an arterial line. Additional recommendations and suggestions are forthcoming. His medications are reviewed. His overall prognosis remains guarded. Chest x-ray, labs, and medications are all reviewed. We will continue to follow make recommendations were appropriate. He continues on antibiotics, as well as GI and DVT prophylaxis. Additional recommendations are forthcoming. Time with Patient: Greater than 30
--- NOTE | 2020-05-01 16:56 | P.PN ---
Subjective Progress Note Date: 05/01/20 Principal diagnosis: Acute hypoxic respiratory failure related to COVID 19 pneumonia This is a very pleasant 45-year-old gentleman who follows with Dr. Salvador as his primary care provider. He has a history of hypertension, hypothyroidism, erectile dysfunction. On April 21 he developed symptoms of fever, chills, night sweats, headache. He tested positive for CoVID 19 on April 24. His shortness of breath increased and he presented here to the emergency room yesterday. Chest x-ray revealed evidence of bilateral infiltrates. CT angiogram ruled out pulmonary embolism. There is bilateral extensive pulmonaryinfiltrates consistent with inflammatory disease secondary to CoVID 19 pneumonitis. White count 4.4. Hemoglobin 16.2. D-dimer 0.71. Sodium 135. Potassium 4.4. Creatinine 0.82. Ferritin 1119. LDH 1220. C-reactive protein 27.2. Pro-calcitonin 0.07. He is seen today in follow-up on the regular medical floor. He is currently sitting up in bed. Awake and alert in no acute distress. He did have a T-max of 100.0. Currently afebrile. Maintaining O2 saturation in the low 90s on 3 L/m per nasal cannula. He was initiated on dexamethasone. On 04/30/2020 and seeing the patient for a follow-up. The patient is still having shortness of breath and his cough and frequently while having a conversation with me. He is having some feverishness and sweating at nighttime. No nausea. No vomiting. No diarrhea. No abdominal pain.On today's blood wor k, his LDH is down to 376 and his CRP is down to 2.9 and the patient remains on examination Decadron colchicine in addition to various vitamin supplements. His d-dimer currently is at 0.59 and it patient is taking Lovenox for DVT prophylaxis. He remains on oxygen at 3 L per minute nasal cannula and his chest x-ray showing patchy perihilar pulmonary infiltrates with some interval improvement compared to the chest x-ray was done on 04/28/2020. On 9 05/01/2020 patient seen in follow-up on medical floor, he is breathing comfortably, awake and alert, sitting up in a chair, denies any acute distress, he is on room air, pulse ox is 91%, O2 saturation with exercise on room air is 87%, patient does qualify for home oxygen, no altered mentation, no chest discomfort, doing well, today's labs have been reviewed d-dimer is 0.59, improved, inflammatory markers have improved. Procalcitonin level was negative. Patient continues on Decadron 6 program daily, prophylactic Lovenox, vitamins Objective - Vital Signs Vital signs: Vital Signs Temp 99.0 F 05/01/20 10:00 Pulse 98 05/01/20 10:00 Resp 18 05/01/20 10:00 BP 154/75 05/01/20 10:00 Pulse Ox 93 L 05/01/20 15:07 Intake & Output 04/30/20 05/01/20 05/01/20 18:59 06:59 18:59 Intake Total 500 800 Output Total 500 Balance -500 500 800 Intake: Oral 500 800 Output: Urine 500 Other: Voiding Method Toilet Toilet Toilet # Voids 3 4 2 - Exam GENERAL EXAM: Alert, very pleasant, 45-year-old white male on 2 L of oxygen pulse ox is 93%, room air pulse ox at rest is 91%, room air pulse ox with exercises 87% comfortable in no apparent distress. HEAD: Normocephalic/atraumatic. EYES: Normal reaction of pupils, equal size. Conjunctiva pink, sclera white. NOSE: Clear with pink turbinates. THROAT: No erythema or exudates. NECK: No masses, no JVD, no thyroid enlargement, no adenopathy. CHEST: No chest wall deformity. Symmetrical expansion. LUNGS: Equal air entry with no crackles, wheeze, rhonchi or dullness. CVS: Regular rate and rhythm, normal S1 and S2, no gallops, no murmurs, no rubs ABDOMEN: Soft, nontender. No hepatosplenomegaly, normal bowel sounds, no guarding or rigidity. EXTREMITIES: No clubbing, no edema, no cyanosis, 2+ pulses and upper and lower extremities. MUSCULOSKELETAL: Muscle strength and tone normal. SPINE: No scoliosis or deformity SKIN: No rashes CENTRAL NERVOUS SYSTEM: Alert and oriented -3. No focal deficits, tone is normal in all 4 extremities. PSYCHIATRIC: Alert and oriented -3. Appropriate affect. Intact judgment and insight. - Labs CBC & Chem 7: 04/28/20 21:50 04/28/20 21:50 Labs: Microbiology - Last 24 Hours (Table) 04/28/20 21:50 Blood Culture - Preliminary Blood No Growth after 48 hours 04/28/20 21:35 Blood Culture - Preliminary Blood No Growth after 48 hours Assessment and Plan Plan: Assessment: 1 Acute hypoxic respiratory failure secondary to acute CoVID 19 pneumonitis, outside the window for Remdesivir , currently on Decadron and the patient's chest x-ray showing some limited improvement in the pulmonary infiltrates and the patient's LDH and CRP are declining. The patient continues to have cough and shortness of breath. Oxygenation is stable on 4 L about 2 by nasal cannula. 2 Elevated inflammatory markers secondary to above 3 Febrile illness secondary to above, pro-calcitonin 0.07. 4 Hypertension 5 Hypothyroidism 6 Erectile dysfunction Plan: Patient is doing well, no worsening dyspnea, he did qualify for home oxygen, will need to 3 L per minute. Continue oral Decadron 6 mg daily for a total of 10 day course, continue vitamins and colchicine, will need outpatient follow-up I performed a history & physical examination of the patient and discussed their management with my nurse practitioner, Moriah Paniagua. I reviewed the nurse practitioner's note and agree with the documented findings and plan of care. Lung sounds are positive for diminished breath sounds. The findings and the impression was discussed with the patient. I attest to the documentation by the nurse practitioner.
--- NOTE | 2020-05-02 16:23 | P.DS ---
Providers Date of admission: 04/29/20 00:22 Expected date of discharge: 05/01/20 Attending physician: Forrest Stinson Consults: 04/29/20 00:16 Consult Physician Stat Consulting Provider: Sherman Vanessa Reason/Comments: Covid pneumonia Do you want consulting provider notified?: Yes Primary care physician: Jose G Salvador Hospital Course: Final Diagnosis -Acute hypoxic respiratory failure secondary to covid 19 -Hypothyroidism -Hypertension -DVT prophylaxis -GI prophylaxis Discharge disposition Patient is being discharged in a stable condition with guarded prognosis to home. Patient will follow-up with Dr. Salvador in the outpatient setting upon discharge. Patient also instructed to follow-up with pulmonary in the outpatient setting. Patient will continue on dexamethasone along with colchicine and vitamin supplements. Total time taken is greater than 35 minutes. Hospital course 43-year-old male came in with compensative fever chills night sweats and headac hes. Patient was diagnosed with Covid 19 ongoing for about 10 days. Chest x- ray bilateral infiltrates. D-dimer is 0.71. Patient last fever was last night. Currently afebrile patient 3 L of oxygen, d dimer is minimally elevated. Patient was started on Decadron, colchicine was evaluated by pulmonary. 05/01/2020 Patient is seen and evaluated in follow-up and shortness of breath has improved. Patient continues to get intermittent dyspnea with exertion and home O2 eval was done showing 87% with exertion and improved to 91% on 2 L. Prescription was provided and case management working on home oxygen for discharge secondary to Covid 19. Patient instructed to follow-up outpatient with pulmonary in the next few weeks and wean oxygen as tolerated. Patient also instructed to follow-up with primary care provider upon discharge. Patient will continue with dexamethasone along with vitamin and zinc supplements. Colchicine for the next week. Currently no reports of chest pain, worsening shortness of breath, or palpitations. Patient is afebrile. No reports of nausea or vomiting and patient is tolerating diet. Patient will be discharged home today. On exam vital signs are stable. Cardio S1, S2 are muffled. Respiratory system shows diminished breath sounds at the bases with no wheezing or rhonchi noted. Abdomen is soft and nontender. Nervous system shows no focal deficits. Please refer to medication reconciliation sheet for a list of medications. Patient Condition at Discharge: Good Plan - Discharge Summary New Discharge Prescriptions: New Benzocaine/Menthol Lozeng [Cepacol lozenge] 1 each MUCOUS MEM Q4HR PRN #12 lozenge PRN Reason: Sore Throat Colchicine [Colcrys] 0.6 mg PO BID 7 Days #14 each Dexamethasone 6 mg PO DAILY 8 Days #8 tablet Ibuprofen [Motrin] 400 mg PO Q6HR PRN #30 tab PRN Reason: Mild Pain Or Fever > 100.5 Zinc Sulfate [Orazinc] 220 mg PO DAILY 30 Days #30 cap Famotidine [Pepcid] 20 mg PO BID 15 Days #30 tab Benzonatate [Tessalon Perles] 100 mg PO TID PRN #30 capsule PRN Reason: Cough Albuterol Inhaler [Ventolin Hfa Inhaler] 2 puff INHALATION RT-QID 30 Days #1 puff Ascorbic Acid [Vitamin C] 1,000 mg PO DAILY 30 Days #60 tab Cholecalciferol [Vitamin D3 (25 Mcg = 1000 Iu)] 50 mcg PO DAILY 30 Days #60 tablet Continue Tadalafil [Cialis] 20 mg PO DAILY PRN PRN Reason: E.D. Levothyroxine Sodium [Synthroid] 75 mcg PO DAILY Acetaminophen [Tylenol] 975 mg PO Q6H PRN PRN Reason: Pain Or Fever > 100.5 Discontinued hydroCHLOROthiazide [Hydrodiuril] 25 mg PO DAILY Naproxen [Naprosyn] 500 mg PO BID PRN PRN Reason: Pain Discharge Medication List Acetaminophen [Tylenol] 975 mg PO Q6H PRN 04/28/20 [History] Levothyroxine Sodium [Synthroid] 75 mcg PO DAILY 04/28/20 [History] Tadalafil [Cialis] 20 mg PO DAILY PRN 04/28/20 [History] Albuterol Inhaler [Ventolin Hfa Inhaler] 2 puff INHALATION RT-QID 30 Days #1 puff 05/01/20 [Rx] Ascorbic Acid [Vitamin C] 1,000 mg PO DAILY 30 Days #60 tab 05/01/20 [Rx] Benzocaine/Menthol Lozeng [Cepacol lozenge] 1 each MUCOUS MEM Q4HR PRN #12 lozenge 05/01/20 [Rx] Benzonatate [Tessalon Perles] 100 mg PO TID PRN #30 capsule 05/01/20 [Rx] Cholecalciferol [Vitamin D3 (25 Mcg = 1000 Iu)] 50 mcg PO DAILY 30 Days #60 tablet 05/01/20 [Rx] Colchicine [Colcrys] 0.6 mg PO BID 7 Days #14 each 05/01/20 [Rx] Dexamethasone 6 mg PO DAILY 8 Days #8 tablet 05/01/20 [Rx] Famotidine [Pepcid] 20 mg PO BID 15 Days #30 tab 05/01/20 [Rx] Ibuprofen [Motrin] 400 mg PO Q6HR PRN #30 tab 05/01/20 [Rx] Zinc Sulfate [Orazinc] 220 mg PO DAILY 30 Days #30 cap 05/01/20 [Rx] Follow up Appointment(s)/Referral(s): Jose G Salvador MD [Primary Care Provider] - 05/03/20 11:30 am (This is a tele health appointment not in the office) Henrry Santos DO [Doctor of Osteopathic Medicine] - 3 Weeks Max Atkinson [NON-STAFF] - As Needed (oxygen ) Patient Instructions/Handouts: Coronavirus Disease 2019 (COVID-19) Activity/Diet/Wound Care/Special Instructions: Activity Limited until follow-up Follow-up with primary care provider upon discharge Continue with Oxygen secondary to Covid 19 and wean off of as tolerated, follow up with pulmonary in 1-2 weeks in the outpatient setting Continue with incentive spirometer at least 10 times every hour while awake Continue dexamethasone until finished Continue colchicine until finished Continue to quarantine for the rest of the week until symptom-free Continue to monitor for fever and use Tylenol and/or Motrin Encourage fluids and rest Discharge Disposition: HOME SELF-CARE
== END 2020-05-01 16:44 | disposition home or self-care (01) | DRG 177 ==
LOC: EC 21:21 → 4SSUR 04-29 00:22
PROVIDERS: ADMIT Hospitalist; ATTEND Hospitalist
DX: U07.1 COVID-19 (principal); J12.82 Pneumonia due to coronavirus disease 2019; J96.01 Acute respiratory failure with hypoxia; I10 Essential (primary) hypertension; E03.9 Hypothyroidism, unspecified; N52.9 Male erectile dysfunction, unspecified; Z79.890 Hormone replacement therapy; Z79.899 Other long term (current) drug therapy
CPT/HCPCS: 36415; 71045; 71275; 80053; 82728; 83605; 83615; 83735; 83880; 84145; 84484; 85025; 85379; 85610; 85730; 86140; 87040; 93005; 94640; 96374; 99285

== ENCOUNTER → 2021-04-06 | Outpatient (CLI) | payer OTHER | END | disposition home or self-care (01) | LOC: LABWHC1 11:55 | PROVIDERS: ATTEND Surgery Plastic and Reconstructive Surgery | DX: Z20.822 Contact with and (suspected) exposure to COVID-19 (principal) ==

== ENCOUNTER 2021-04-11 07:39 | Day surgery (SDC) | payer OTHER ==
[2021-04-09 10:05] VITALS: BMI 35.2
[~2021-04-11 07:39] MED LIST: LACTATED RINGERS 1,000 ML IV SCH; LIDOCAINE 1% (10MG/ML) FOR IV START INTRADERMA PRN
[2021-04-11 08:17] VITALS: RESP 16; TEMP 97.3
--- NOTE | 2021-04-11 08:30 | P.GSHP ---
History of Present Illness H&P Date: 04/11/21 CHIEF COMPLAINT: Colon screen HISTORY OF PRESENT ILLNESS: The patient is a 46-year-old male who presents for colon screen. Lower endoscopy was offered for further evaluation and management. PAST MEDICAL HISTORY: Please see list. PAST SURGICAL HISTORY: Please see list. MEDICATIONS: Please see list. ALLERGIES: Please see list. SOCIAL HISTORY: No illicit drug use FAMILY HISTORY: No reports of Crohn disease or ulcerative colitis. REVIEW OF ORGAN SYSTEMS: CONSTITUTIONAL: No reports of fevers or chills. PHYSICAL EXAM: VITAL SIGNS: Stable GENERAL: Well-developed pleasant in no acute distress. HEENT: No scleral icterus. Extraocular movements grossly intact. Moist buccal mucosa. NECK: Supple without lymphadenopathy. CHEST: Unlabored respirations. Equal bilateral excursions. CARDIOVASCULAR: Regular rate and rhythm. Distal 2+ pulses. ABDOMEN: Soft, nontender, nondistended. MUSCULOSKELETAL: No clubbing, cyanosis, or edema. ASSESSMENT: 1. Colon screen. PLAN: 1. Recommend proceeding with a lower endoscopy Past Medical History Past Medical History: Thyroid Disorder Additional Past Medical History / Comment(s): covid +-04/28/20 History of Any Multi-Drug Resistant Organisms: None Reported Past Surgical History: No Surgical Hx Reported Past Anesthesia/Blood Transfusion Reactions: No Reported Reaction Smoking Status: Never smoker - Past Family History Mother Family Medical History: No Reported History Medications and Allergies Home Medications Medication Instructions Recorded Confirmed Type Levothyroxine Sodium [Synthroid] 75 mcg PO DAILY 04/28/20 04/11/21 History Tadalafil [Cialis] 20 mg PO DAILY PRN 04/28/20 04/11/21 History Ascorbic Acid [Vitamin C] 1,000 mg PO DAILY 30 Days #60 tab 05/01/20 04/11/21 Rx Cholecalciferol [Vitamin D3 (25 50 mcg PO DAILY 30 Days #60 tablet 05/01/20 04/11/21 Rx Mcg = 1000 Iu)] Zinc Sulfate [Orazinc] 220 mg PO DAILY 30 Days #30 cap 05/01/20 04/11/21 Rx Phentermine HCl [Adipex-P] 37.5 mg PO DAILY 04/09/21 04/11/21 History Allergies Allergy/AdvReac Type Severity Reaction Status Date / Time No Known Allergies Allergy Verified 04/11/21 08:09 Surgical - Exam Vital Signs Temp Pulse Resp BP Pulse Ox 97.3 F L 76 16 160/91 98 04/11/21 08:16 04/11/21 08:16 04/11/21 08:16 04/11/21 08:16 04/11/21 08:16
[2021-04-11] MEDS ORDERED: PROPOFOL 10 MG/ML 20 ML VIAL IV ONE (08:45)
[2021-04-11 09:43] VITALS: BP 117/68; PULSE 73
--- NOTE | 2021-04-11 09:48 | P.PCN ---
Date of Procedure: 04/11/21 Description of Procedure: PREOPERATIVE DIAGNOSIS: Colonoscopy screening POSTOPERATIVE DIAGNOSIS: Tubular adenoma sigmoid colon Tubular adenoma descending colon OPERATION: Colonoscopy to the ileocecal valve and appendiceal orifice, cecum Colonoscopy with hot snare polypectomy SURGEON: Erica Nair MD. ANESTHESIA: MAC. INDICATIONS: The patient is a 46-year-old male who presents colon screening. Benefits and risks were described and informed consent was obtained. DESCRIPTION OF PROCEDURE: The patient had undergone Sutab prep. The patient had been brought into the operating room and laid in the left lateral decubitus position. After adequate intravenous sedation, the rectum was examined with 2% lidocaine jelly. The prostate was unremarkable. No external hemorrhoids were encountered. The rectal tone was within normal limits. No lesions were palpated in the rectal vault. An Olympus colonoscope was advanced until the cecum, ileocecal valve and appendiceal orifice were clearly viewed. The prep was fair. No sigmoid diverticulosis was encountered. Colonic polyps were found and removed. No evidence of focal colitis was found. Retroflexion of the scope demonstrated grade 2 internal hemorrhoids without active bleeding or inflammation. The colon was desufflated. The patient had tolerated the procedure well. Withdrawal time was over 6 minutes. FINDINGS: Aronchick preparation quality scale 2 (1-5) Internal hemorrhoids, grade 2 No external hemorrhoids No arteriovenous malformations. No sigmoid diverticulosis Removal of 2 polyps: - Snare polypectomy 20 cm from the anal verge, 5 mm tubulovillous adenoma polyp, sigmoid colon - Snare polypectomy 40 cm from the anal verge, 6 mm flat villous adenoma polyp, descending colon No focal colitis. RECOMMENDATIONS: Repeat colonoscopy 3 years, 2024 Plan - Discharge Summary Discharge Rx Participant: No New Discharge Prescriptions: Continue Tadalafil [Cialis] 20 mg PO DAILY PRN PRN Reason: E.D. Levothyroxine Sodium [Synthroid] 75 mcg PO DAILY Zinc Sulfate [Orazinc] 220 mg PO DAILY 30 Days #30 cap Ascorbic Acid [Vitamin C] 1,000 mg PO DAILY 30 Days #60 tab Cholecalciferol [Vitamin D3 (25 Mcg = 1000 Iu)] 50 mcg PO DAILY 30 Days #60 tablet Phentermine HCl [Adipex-P] 37.5 mg PO DAILY Discharge Medication List Levothyroxine Sodium [Synthroid] 75 mcg PO DAILY 04/28/20 [History] Tadalafil [Cialis] 20 mg PO DAILY PRN 04/28/20 [History] Ascorbic Acid [Vitamin C] 1,000 mg PO DAILY 30 Days #60 tab 05/01/20 [Rx] Cholecalciferol [Vitamin D3 (25 Mcg = 1000 Iu)] 50 mcg PO DAILY 30 Days #60 tablet 05/01/20 [Rx] Zinc Sulfate [Orazinc] 220 mg PO DAILY 30 Days #30 cap 05/01/20 [Rx] Phentermine HCl [Adipex-P] 37.5 mg PO DAILY 04/09/21 [History] Follow up Appointment(s)/Referral(s): Erica Nair MD [STAFF PHYSICIAN] - As Needed Patient Instructions/Handouts: *Surgery [facility] - (Anesthesia) Endoscopy Discharge Instructions, Colorectal Polyps (DC), Colonoscopy (DC) Activity/Diet/Wound Care/Special Instructions: Repeat colonoscopy in 3 years, 2024 Discharge Disposition: HOME SELF-CARE
== END 2021-04-11 10:10 | disposition home or self-care (01) ==
LOC: ORWHC2ENDO 07:39
PROVIDERS: ATTEND Surgery Plastic and Reconstructive Surgery
DX: Z12.11 Encounter for screening for malignant neoplasm of colon (principal); D12.5 Benign neoplasm of sigmoid colon; D12.4 Benign neoplasm of descending colon
CPT/HCPCS: 45385; 88305; J2704

== ENCOUNTER 2024-06-03 10:50 | Day surgery (SDC) | payer OTHER ==
[2024-06-01 14:37] VITALS: BMI 29.0
--- NOTE | 2024-06-03 08:10 | P.GSHP ---
History of Present Illness H&P Date: 06/03/24 CHIEF COMPLAINT: Colon screen HISTORY OF PRESENT ILLNESS: The patient is a 49-year-old male who presents for colon screen. Lower endoscopy was offered for further evaluation and management. PAST MEDICAL HISTORY: Please see list. PAST SURGICAL HISTORY: Please see list. MEDICATIONS: Please see list. ALLERGIES: Please see list. SOCIAL HISTORY: No illicit drug use FAMILY HISTORY: No reports of Crohn disease or ulcerative colitis. REVIEW OF ORGAN SYSTEMS: CONSTITUTIONAL: No reports of fevers or chills. PHYSICAL EXAM: VITAL SIGNS: Stable GENERAL: Well-developed pleasant in no acute distress. HEENT: No scleral icterus. Extraocular movements grossly intact. Moist buccal mucosa. NECK: Supple without lymphadenopathy. CHEST: Unlabored respirations. Equal bilateral excursions. CARDIOVASCULAR: Regular rate and rhythm. Distal 2+ pulses. ABDOMEN: Soft, nontender, nondistended. MUSCULOSKELETAL: No clubbing, cyanosis, or edema. ASSESSMENT: 1. Colon screen. PLAN: 1. Recommend proceeding with a lower endoscopy Past Medical History Past Medical History: Thyroid Disorder Additional Past Medical History / Comment(s): Migraines. History of Any Multi-Drug Resistant Organisms: None Reported Past Surgical History: No Surgical Hx Reported Additional Past Surgical History / Comment(s): Colonoscopy, dental work. Past Anesthesia/Blood Transfusion Reactions: No Reported Reaction Smoking Status: Never smoker - Past Family History Mother Family Medical History: No Reported History Medications and Allergies Home Medications Medication Instructions Recorded Confirmed Type Levothyroxine Sodium [Synthroid] 75 mcg PO QAM 04/28/20 06/01/24 History tadalafiL [Cialis] 20 mg PO DAILY PRN 04/28/20 06/01/24 History Ascorbic Acid [Vitamin C] 1,000 mg PO DAILY 30 Days #60 tab 05/01/20 06/01/24 Rx Cholecalciferol [Vitamin D3 (25 50 mcg PO DAILY 30 Days #60 tablet 05/01/20 06/01/24 Rx Mcg = 1000 Iu)] Zinc Sulfate [Orazinc] 220 mg PO DAILY 30 Days #30 cap 05/01/20 06/01/24 Rx Phentermine HCl [Adipex-P] 37.5 mg PO DAILY 04/09/21 06/01/24 History Allergies Allergy/AdvReac Type Severity Reaction Status Date / Time No Known Allergies Allergy Verified 06/01/24 14:25
[~2024-06-03 10:50] MED LIST changes: -LACTATED RINGERS 1,000 ML IV SCH; +ONDANSETRON 4 MG/2 ML VIAL IVP PRN
[2024-06-03] MEDS: IV FLUID CONTINUATION 1,000 ML IV ONE (11:02)
[2024-06-03] MEDS: LACTATED RINGERS 1,000 ML IV SCH (11:03)
[2024-06-03 11:10] VITALS: RESP 16; TEMP 98.4
[2024-06-03] MEDS ORDERED: LIDOCAINE 1% INJ 10MG/ML (20 ML MDV) ONE (11:27)
[2024-06-03] MEDS ORDERED: PROPOFOL 10 MG/ML 20 ML VIAL IV ONE (11:27)
--- NOTE | 2024-06-03 12:00 | P.PCN ---
Date of Procedure: 06/03/24 Description of Procedure: PREOPERATIVE DIAGNOSIS: Personal history of colon polyps Colonoscopy screening POSTOPERATIVE DIAGNOSIS: Tubular adenoma hepatic flexure Tubular adenoma rectum Sigmoid diverticulosis Pandiverticulosis OPERATION: Colonoscopy to the ileocecal valve and appendiceal orifice, cecum Colonoscopy with hot snare polypectomy SURGEON: Erica Nair MD. ANESTHESIA: MAC. INDICATIONS: The patient is an 49-year-old male who presents personal history of colon polyps. Last colonoscopy 10+ years. Benefits and risks were described and informed consent was obtained. DESCRIPTION OF PROCEDURE: The patient had undergone Suprep. The patient had been brought into the operating room and laid in the left lateral decubitus position. After adequate intravenous sedation, the rectum was examined with 2% lidocaine jelly. The prostate was unremarkable. No external hemorrhoids were encountered. The rectal tone was within normal limits. No lesions were palpated in the rectal vault. An Olympus colonoscope was advanced until the cecum, ileocecal valve and appendiceal orifice were clearly viewed. The prep was fair. Sigmoid diverticulosis with pandiverticulosis was encountered. Colonic polyps were found and removed. No evidence of focal colitis was found. Retroflexion of the scope demonstrated grade 1 internal hemorrhoids without active bleeding or inflammation. The colon was desufflated. The patient had tolerated the procedure well. Withdrawal time was over 6 minutes. FINDINGS: Aronchick preparation quality scale 2+ (1-5) Internal hemorrhoids, grade 1 No external hemorrhoids No arteriovenous malformations. Sigmoid diverticulosis with pandiverticulosis Removal of 3 polyps: - Snare polypectomy rectum x 2, 4 to 5 mm tubulovillous adenoma - Snare polypectomy hepatic flexure, 8 mm flat villous adenoma with piecemeal resection No focal colitis. RECOMMENDATIONS: Recommend repeat colonoscopy 3 years, 2027 Plan - Discharge Summary Discharge Rx Participant: No New Discharge Prescriptions: Continue tadalafiL [Cialis] 20 mg PO DAILY PRN PRN Reason: E.D. Levothyroxine Sodium [Synthroid] 75 mcg PO QAM Zinc Sulfate [Orazinc] 220 mg PO DAILY 30 Days #30 cap Ascorbic Acid [Vitamin C] 1,000 mg PO DAILY 30 Days #60 tab Cholecalciferol [Vitamin D3 (25 Mcg = 1000 Iu)] 50 mcg PO DAILY 30 Days #60 tablet Phentermine HCl [Adipex-P] 37.5 mg PO DAILY Discharge Medication List Levothyroxine Sodium [Synthroid] 75 mcg PO QAM 04/28/20 [History] tadalafiL [Cialis] 20 mg PO DAILY PRN 04/28/20 [History] Ascorbic Acid [Vitamin C] 1,000 mg PO DAILY 30 Days #60 tab 05/01/20 [Rx] Cholecalciferol [Vitamin D3 (25 Mcg = 1000 Iu)] 50 mcg PO DAILY 30 Days #60 tablet 05/01/20 [Rx] Zinc Sulfate [Orazinc] 220 mg PO DAILY 30 Days #30 cap 05/01/20 [Rx] Phentermine HCl [Adipex-P] 37.5 mg PO DAILY 04/09/21 [History] Follow up Appointment(s)/Referral(s): Erica Nair MD [STAFF PHYSICIAN] - As Needed Patient Instructions/Handouts: Colorectal Polyps (GEN), Diverticulosis (DC) Activity/Diet/Wound Care/Special Instructions: Repeat colonoscopy 3 years, 2027 Discharge Disposition: HOME SELF-CARE
[2024-06-03 12:11] VITALS: BP 118/76; PULSE 77
== END 2024-06-03 12:38 | disposition home or self-care (01) ==
LOC: ORWHC2ENDO 10:50
PROVIDERS: ATTEND Surgery Plastic and Reconstructive Surgery
DX: Z12.11 Encounter for screening for malignant neoplasm of colon (principal); D12.3 Benign neoplasm of transverse colon; K62.1 Rectal polyp; K64.0 First degree hemorrhoids; K57.50 Diverticulosis of both small and large intestine without perforation or abscess without bleeding; Z86.0100 Personal history of colon polyps, unspecified; G43.909 Migraine, unspecified, not intractable, without status migrainosus; E07.9 Disorder of thyroid, unspecified; Z79.890 Hormone replacement therapy; Z79.899 Other long term (current) drug therapy
CPT/HCPCS: 88305; 45385; J2003; J2704

== ENCOUNTER → 2024-06-08 | Outpatient (CLI) | payer OTHER ==
--- NOTE | 2024-06-08 10:53 | CT ---
EXAMINATION TYPE: CT heart w calcium score DATE OF EXAM: 06/08/2024 COMPARISON: None CLINICAL INDICATION: Male, 49 years old with history of Z82.49 FAMILY HX OF ISCHEM HEART DIS AND OTH DIS O; PHH, Family hx ischemic heart disease TECHNIQUE: Prospective Gating was used. Slice thickness: 3mm. Density threshold (HU): 130, Pixel threshold: 3, Algorithm: discrete. CT DLP: 76.[address] CTDI: mGy Automated exposure control for dose reduction was used. FINDINGS: CT CALCIUM SCORING Coronary calcium is a marker for plaque (fatty deposits) in a blood vessel or atherosclerosis (harden ing of the arteries). The presence and amount of calcium detected in a coronary artery by the CT sca n, indicates the presence and amount of atherosclerotic plaque. These calcium deposits appear years before the development of heart disease symptoms such as chest pain and shortness of breath. A calcium score is computed for each of the coronary arteries based upon the volume and density of th e calcium deposits. This can be referred to as your calcified plaque burden. It does not correspond directly to the percentage of narrowing in the artery but does correlate with the severity of the un derlying coronary atherosclerosis. RESULTS Region: LM Calcium Score ([place]): 9.57 Volume (mm3): 17.12 Mass (g): 5.71 Region: RCA Calcium Score ([place]): 0 Volume (mm3): 0 Mass (g): 0 Region: LAD Calcium Score ([place]): 0 Volume (mm3): 0 Mass (g): 0 Region: CX Calcium Score ([place]): 0 Volume (mm3): 0 Mass (g): 0 Region: PDA Calcium Score ([place]): 0 Volume (mm3): 0 Mass (g): 0 Total: Calcium Score ([place]): 0 Volume (mm3): 17.12 Mass (g): 5.71 TOTAL CALCIUM SCORE: 9.57 IMPRESSION: Calcium Score: 1-10 Implication: Minimal identifable plaque. Risk of Coronary Artery Disease: Very unlikely, less than 10%. CALCIUM SCORE IMPLICATION RISK OF C ORONARY ARTERY DISEASE 0 No identifiable plaque Very low, generally less than 5% 1-10 Minimal identifiable plaque Very unlikely, less than 10% 11-100 Definite, at least mild atherosclerotic plaque Mild or m inimal coronary narrowings likely 101-400 Definite, at least moderate atherosclerotic plaque Mild coronary ar haylie disease highly likely, significant narrowing possible 401 or Higher Extensive atherosclerotic plaque High lik elihood of at least one significant coronary narrowing [facility], , 06/08/2024 10:51 AM
== END | disposition home or self-care (01) ==
LOC: RADCTMAIN 09:01
PROVIDERS: ATTEND Family Medicine
DX: I25.10 Atherosclerotic heart disease of native coronary artery without angina pectoris (principal); Z82.49 Family history of ischemic heart disease and other diseases of the circulatory system
CPT/HCPCS: 75571